=== PATIENT | male | born 1960 | race Caucasian/White ===

== ENCOUNTER 2022-12-17 05:29 | Emergency (ER) | payer OTHER ==
[~2022-12-17] VITALS: Ht 180.3 cm; Wt 77.1 kg
[2022-12-17 05:41] VITALS: BP 129/74
[2022-12-17] MEDS ORDERED: BACTO TP (07:13)
--- NOTE | 2022-12-17 07:32 | NUR ---
Patient discharged with v/s stable. Written and verbal after care instructions given and explained. Patient verbalized understanding. Ambulatory with steady gait. All questions addressed prior to discharge. Advised to follow up with PMD.
== END 2022-12-17 07:32 | disposition home or self-care (01) ==
LOC: MED 05:29
DX: S90.822A Blister (nonthermal), left foot, initial encounter (principal); E11.9 Type 2 diabetes mellitus without complications; X58.XXXA Exposure to other specified factors, initial encounter; Y93.89 Activity, other specified; Y92.89 Other specified places as the place of occurrence of the external cause; Y99.8 Other external cause status
CPT/HCPCS: 99281